=== PATIENT | female | born 1995 | race Caucasian/White ===

== ENCOUNTER 2017-03-05 16:30 | Inpatient (IN) | payer SELFPAY ==
[~2017-03-05] VITALS: Ht 160 cm; Wt 55.6 kg
[2017-03-05 16:32] VITALS: BP 151/76; PULSE 66; RESP 24; TEMP 97.8; O2SAT 98
--- NOTE | 2017-03-05 16:40 | PD ---
Physical Exam Date Seen by Provider: March 05, 2017 Time Seen by Provider: 16:37 Narrative Pt presents with chest and abdominal pain. Started at 0700 this morning. Pain is pressure like. She's SOB. Pt is not on OCP. +N/V. Pt appears acutely distressed. VSS. Data Data Last Documented VS Vital Signs Date Time Temp Pulse Resp B/P Pulse Ox O2 Delivery O2 Flow Rate FiO2 03/05/17 16:32 97.8 66 24 151/76 98 Room Air MDM Supervised Visit with BERKLEY: No Scripts No Active Prescriptions or Reported Meds Amanda Rodriguez March 05, 2017 16:39
[2017-03-05] MEDS ORDERED: LORazepam 2 MG/ML VIAL IV PUSH ONE (17:15)
[2017-03-05] MEDS ORDERED: SODIUM CHLORIDE 0.9% FLUSH 10 ML FLUSH IVF PRN (17:15)
[2017-03-05] MEDS ORDERED: ONDANSETRON HCL 4 MG/2 ML VIAL IV PUSH ONE (17:15)
--- NOTE | 2017-03-05 17:17 | PD ---
HPI Chief Complaint: Chest Pain Time Seen by Provider: 17:05 Travel History International Travel<30 days: No Contact w/Intl Traveler<30days: No Traveled to known affect area: No History of Present Illness HPI This is a 21-year-old female who denies any significant past medical history. She presents for evaluation of chest pain. She reports that this morning she and having epigastric abdominal pain, nausea and vomiting. The abdominal pain is essentially resolved but since then she has had substernal chest pain which she describes as a sharp pain that is constant, worse when breathing in. She endorses shortness of breath associated with this pleuritic pain. She denies any fevers or chills, cough or congestion, dysuria, flank pain, diarrhea or constipation. She reports that she has had similar pain in the past. She reports that typically every 6 months she has this sort of pain. Denies any oral contraceptive use. No history of PE, DVT. No history of pancreatitis. She has no other complaints. PFSH Past Medical History Blood Disorders: No Depression: Yes Cardiovascular Problems: No Diminished Hearing: No Genitourinary: No Musculoskeletal: No Neurologic: No Reproductive: No Respiratory: No Sickle Cell Disease: No ?: Not Past Surgical History Appendectomy: Yes Tonsillectomy: Yes Other Surgery: No Social History Alcohol Use: Yes (RARE) Tobacco Use: No Substance Use: Yes (marijuana) Allergies-Medications (Allergen,Severity, Reaction): Coded Allergies: No Known Allergies (Verified , 03/05/17) Reported Meds & Prescriptions Reported Meds & Active Scripts Active No Active Prescriptions or Reported Medications Review of Systems Except as stated in HPI: all other systems reviewed are Neg Physical Exam Narrative GENERAL: This is a well-developed well-nourished female who is anxious SKIN: Warm and dry. HEAD: Atraumatic. Normocephalic. EYES: Pupils equal and round. No scleral icterus. No injection or drainage. ENT: No nasal bleeding or discharge. Mucous membranes pink and moist. NECK: Trachea midline. No JVD. CARDIOVASCULAR: Regular rate and rhythm. No murmur appreciated. RESPIRATORY: No accessory muscle use. Clear to auscultation. Breath sounds equal bilaterally. No crackles no wheezing or rhonchi GASTROINTESTINAL: Abdomen soft, mild epigastric tenderness without guarding. MUSCULOSKELETAL: No obvious deformities. No edema. NEUROLOGICAL: Awake and alert. No obvious cranial nerve deficits. Motor grossly within normal limits. Normal speech. PSYCHIATRIC: Appropriate mood and affect; insight and judgment normal. Data Data Last Documented VS Vital Signs Date Time Temp Pulse Resp B/P Pulse Ox O2 Delivery O2 Flow Rate FiO2 03/05/17 19:06 90 18 100/52 95 Room Air 03/05/17 16:32 97.8 Orders Electrocardiogram (03/05/17 16:39) Ckmb (Isoenzyme) Profile (03/05/17 17:13) Complete Blood Count With Diff (03/05/17 17:13) Comprehensive Metabolic Panel (03/05/17 17:13) D-Dimer (03/05/17 17:13) Magnesium (Mg) (03/05/17 17:13) Prothrombin Time / Inr (Pt) (03/05/17 17:13) Act Partial Throm Time (Ptt) (03/05/17 17:13) Troponin I (03/05/17 17:13) Lipase (03/05/17 17:13) Chest, Single Ap (03/05/17 17:13) Ecg Monitoring (03/05/17 17:13) Bilateral Bp Monitoring (03/05/17 17:13) Iv Access Insert/Monitor (03/05/17 17:13) Oximetry (03/05/17 17:13) Oxygen Administration (03/05/17 17:13) Sodium Chloride 0.9% Flush (Ns Flush) (03/05/17 17:15) Lactic Acid (03/05/17 17:13) Ed Urine Pregnancytest Poc (03/05/17 17:13) Lorazepam Inj (Ativan Inj) (03/05/17 17:15) Ondansetron Inj (Zofran Inj) (03/05/17 17:15) Urinalysis - C+S If Indicated (03/05/17 17:35) Sodium Chlor 0.9% 1000 Ml Inj (Ns 1000 M (03/05/17 17:45) Sodium Chlor 0.9% 1000 Ml Inj (Ns 1000 M (03/05/17 17:45) Drug Screen, Random Urine (03/05/17 17:44) Vancomycin Inj (Vancomycin Inj) (03/05/17 18:15) Blood Culture (03/05/17 18:13) Piperacil-Tazo 3.375 Gm Premix (Zosyn 3. (03/05/17 18:15) CKMB (03/05/17 17:25) CKMB% (03/05/17 17:25) Morphine Inj (Morphine Inj) (03/05/17 18:45) Beta Hydroxybutyrate (Acetone) (03/05/17 19:33) Admit To Inpatient (03/05/17 ) Vital Signs (Adult) Q4H (03/05/17 19:33) Activity Oob Ad Rocío (03/05/17 19:33) Personal Support Worker / Telemetry .CONTINUOUS (03/05/17 19:33) Diet Regular Basic (03/06/17 Breakfast) Sodium Chlor 0.9% 1000 Ml Inj (Ns 1000 M (03/05/17 19:33) Sodium Chloride 0.9% Flush (Ns Flush) (03/05/17 19:45) Sodium Chloride 0.9% Flush (Ns Flush) (03/05/17 21:00) Ondansetron Inj (Zofran Inj) (03/05/17 19:45) Comprehensive Metabolic Panel (03/06/17 06:00) Complete Blood Count With Diff (03/06/17 06:00) Naloxone Inj (Narcan Inj) (03/05/17 19:45) Inpatient Certification (03/05/17 ) Admit Order (Ed Use Only) (03/05/17 19:34) Labs Laboratory Tests Test 03/05/17 03/05/17 17:25 17:31 White Blood Count 16.2 TH/MM3 Red Blood Count 4.12 MIL/MM3 Hemoglobin 12.7 GM/DL Hematocrit 37.0 % Mean Corpuscular Volume 89.8 FL Mean Corpuscular Hemoglobin 30.9 PG Mean Corpuscular Hemoglobin 34.4 % Concent Red Cell Distribution Width 12.6 % Platelet Count 249 TH/MM3 Mean Platelet Volume 10.1 FL Neutrophils (%) (Auto) 93.0 % Lymphocytes (%) (Auto) 4.2 % Monocytes (%) (Auto) 2.3 % Eosinophils (%) (Auto) 0.0 % Basophils (%) (Auto) 0.5 % Neutrophils # (Auto) 15.1 TH/MM3 Lymphocytes # (Auto) 0.7 TH/MM3 Monocytes # (Auto) 0.4 TH/MM3 Eosinophils # (Auto) 0.0 TH/MM3 Basophils # (Auto) 0.1 TH/MM3 CBC Comment DIFF FINAL Differential Comment Prothrombin Time 11.8 SEC Prothromb Time International 1.1 RATIO Ratio Activated Partial 27.3 SEC Thromboplast Time D-Dimer Quantitative (PE/DVT) 0.22 MG/L FEU Sodium Level 136 MEQ/L Potassium Level 3.4 MEQ/L Chloride Level 104 MEQ/L Carbon Dioxide Level 15.5 MEQ/L Anion Gap 17 MEQ/L Blood Urea Nitrogen 5 MG/DL Creatinine 0.97 MG/DL Estimat Glomerular Filtration 72 ML/MIN Rate Random Glucose 112 MG/DL Lactic Acid Level 7.2 mmol/L Calcium Level 9.5 MG/DL Magnesium Level 1.6 MG/DL Total Bilirubin 0.5 MG/DL Aspartate Amino Transf 16 U/L (AST/SGOT) Alanine Aminotransferase 17 U/L (ALT/SGPT) Alkaline Phosphatase 54 U/L Total Creatine Kinase 149 U/L Creatine Kinase MB 1.8 NG/ML Troponin I LESS THAN 0.02 NG/ML Total Protein 8.3 GM/DL Albumin 4.8 GM/DL Lipase 50 U/L Urine Color YELLOW Urine Turbidity CLEAR Urine pH 7.0 Urine Specific [place] 1.021 Urine Protein TRACE mg/dL Urine Glucose (UA) 150 mg/dL Urine Ketones 150 mg/dL Urine Occult Blood MOD Urine Nitrite NEG Urine Bilirubin NEG Urine Urobilinogen LESS THAN 2.0 MG/DL Urine Leukocyte Esterase NEG Urine RBC 6 /hpf Urine WBC 1 /hpf Urine Squamous Epithelial 4 /hpf Cells Urine Mucus FEW /lpf Microscopic Urinalysis Comment CULT NOT INDICATED MDM Medical Decision Making Medical Screen Exam Complete: Yes Emergency Medical Condition: Yes Medical Record Reviewed: Yes Interpretation(s) EKG sinus bradycardia rate 55 Differential Diagnosis Gastritis, pancreatitis, biliary colic, pneumothorax, gastroenteritis, pulmonary embolism, pericarditis, myocarditis Narrative Course 21-year-old female here for one day history of pleuritic chest pain, shortness of breath, nausea and vomiting. She endorses some epigastric abdominal discomfort this morning which seems to have resolved. On examination she does have mild epigastric tenderness to palpation without guarding. She appears very anxious, hyperventilating. Her vital signs have been reviewed. Plan is for basic lab work, EKG, ECG monitoring, pulse oximetry, chest x-ray, d-dimer. She will be given Ativan, IV fluids and Zofran. The patient's lab work has been reviewed and are she has lactic acidosis with a lactic acid of 7.2, leukocytosis. 2 L of IV fluids and been initiated. Upon reexamination she is feeling somewhat more calm but still in pain so small dose of morphine has been ordered. The patient will be admitted for further evaluation and treatment. Blood cultures have been initiated as well as broad- spectrum antibiotics. Discussed with Dr. Osorio who is agreeable with admission. Procedures EKG Prior to Arrival: Yes Diagnosis Primary Impression: Lactic acidosis Additional Impressions: Leukocytosis Qualified Code: D72.829 - Leukocytosis, unspecified type Nausea and vomiting Qualified Code: R11.2 - Nausea and vomiting, intractability of vomiting not specified, unspecified vomiting type Admitting Information Admitting Physician Requests: Admit Scripts No Active Prescriptions or Reported Meds Jonny Monique March 05, 2017 17:17
[2017-03-05 17:25] VITALS: BP_SYST 122; BP_SYST 124; BP_DIAS 66; BP_DIAS 77; PULSE 63; PULSE 91; RESP 18; O2SAT 100
--- NOTE | 2017-03-05 17:36 | RADRPT ---
EXAM DATE/TIME: 03/05/2017 17:17 [facility] COMPARISON: CHEST SINGLE AP, October 15, 2016, 2:11. INDICATIONS : Chest pain MEDICAL HISTORY : None. SURGICAL HISTORY : None. ENCOUNTER: Initial ACUITY: 2 days PAIN SCORE: 9/10 LOCATION: Bilateral chest FINDINGS: A single view of the chest demonstrates the lungs to be symmetrically aerated without evidence of mas s, infiltrate or effusion. The cardiomediastinal contours are unremarkable. Osseous structures are intact. CONCLUSION: No acute cardiopulmonary process to explain current clinical symptoms. Av Cooney MD on March 05, 2017 at 17:34 Board Certified Radiologist. This report was verified electronically.
[2017-03-05] MEDS ORDERED: SODIUM CHLOR 0.9% 1000 ML INJ 1,000 ML IV ONE ×2 (17:45)
[2017-03-05 17:50] LABS: AUTOMATED NEUTROPHIL # 15.1 TH/MM3 (1.8-7.7); BASOPHIL # 0.1 TH/MM3 (0-0.2); BASOPHIL % 0.5 % (0.0-2.0); HEMO FLAGS DIFF FINAL; LYMPH % 4.2 % (9.0-44.0); LYMPHOCYTE # 0.7 TH/MM3 (1.0-4.8); MEAN CELL VOLUME 89.8 FL (80.0-100.0); MEAN CORPUSCULAR HEMOGLOBIN 30.9 PG (27.0-34.0); MEAN CORPUSCULAR HGB CONC 34.4 % (32.0-36.0); MONO % 2.3 % (0.0-8.0); PLATELET COUNT 249 TH/MM3 (150-450); RED BLOOD COUNT 4.12 MIL/MM3 (4.00-5.30); RED CELL DISTRIBUTION WIDTH 12.6 % (11.6-17.2); WHITE BLOOD COUNT 16.2 TH/MM3 (4.0-11.0)
[2017-03-05 17:50] LABS: BLOOD, URINE MOD (NEG); COMMENT (UR) CULT NOT INDICATED; CULTURE IF INDICATED CULT NOT INDICATED; GLUCOSE,URINE 150 mg/dL (NEG); KETONE, URINE 150 mg/dL (NEG); MUCUS URINE FEW /lpf (OCC); NITRITE,URINE NEG (NEG); SQUAMOUS EPITHELIAL CELL URINE 4 /hpf (0-5); URINE COLOR YELLOW (YELLW/STRAW)
--- NOTE | 2017-03-05 17:52 | EKG ---
Date Performed: 03/05/2017 Time Performed: 16:45:00 PTAGE: 21 years EKG: SINUS BRADYCARDIA WITH OCCASIONAL SUPRAVENTRICULAR PREMATURE COMPLEXES BORDERLINE ECG ALLAN RED TO PRIOR ELECTROCARDIOGRAM, Rate has slowed. PREVIOUS TRACING : 10/15/2016 02.22 DOCTOR: Ge Bell Interpretating Date/Time 03/05/2017 17:51:45
[2017-03-05 18:03] LABS: APTT (PATIENT) 27.3 SEC (24.3-30.1); INTERNATIONAL NORMALIZED RATIO 1.1 RATIO; PROTHROMBIN TIME - PATIENT 11.8 SEC (9.8-11.6)
[2017-03-05 18:04] LABS: ALT (GPT) 17 U/L (10-53); ANION GAP 17 MEQ/L (5-15); AST (GOT) 16 U/L (15-37); BICARBONATE 15.5 MEQ/L (21.0-32.0); BLOOD UREA NITROGEN 5 MG/DL (7-18); CHLORIDE 104 MEQ/L (98-107); GLOMERULAR FILTRATION RATE 72 ML/MIN (>89); MAGNESIUM 1.6 MG/DL (1.5-2.5); POTASSIUM 3.4 MEQ/L (3.5-5.1); SODIUM (NA) 136 MEQ/L (136-145)
[2017-03-05] MEDS ORDERED: VANCOMYCIN INJ 1,000 MG in SODIUM CHLOR 0.9% 250 ML INJ 250 ML IV ONE (18:15)
[2017-03-05] MEDS ORDERED: PIPERACIL-TAZO 3.375 GM PREMIX 50 ML IV ONE ×2 (18:15)
[2017-03-05] MEDS ORDERED: VANCOMYCIN INJ 900 MG in SODIUM CHLOR 0.9% 250 ML INJ 250 ML IV ONE (18:15)
[2017-03-05 18:19] LABS: ALKALINE PHOSPHATASE 54 U/L (45-117); CREATINE KINASE 149 U/L (26-192); TOTAL BILIRUBIN ADULT 0.5 MG/DL (0.2-1.0)
[2017-03-05 18:31] LABS: CKMB 1.8 NG/ML (0.5-3.6)
[2017-03-05] MEDS ORDERED: MORPHINE SULFATE 4 MG/ML INJ IV PUSH ONE (18:45)
[2017-03-05 19:06] VITALS: BP 100/52; PULSE 90; RESP 18; O2SAT 95
[2017-03-05] MEDS ORDERED: NALOXONE HCL 0.4 MG/ML AMP IV PRN (19:45)
[2017-03-05] MEDS ORDERED: Vancomycin Consult Pharmacy 1 EA OTHER SCH (19:45)
[2017-03-05] MEDS ORDERED: ONDANSETRON HCL 4 MG/2 ML VIAL IVP PRN (19:45)
[2017-03-05] MEDS ORDERED: SODIUM CHLORIDE 0.9% FLUSH 10 ML FLUSH IV FLUSH PRN (19:45)
[2017-03-05] MEDS: SODIUM CHLORIDE 0.9% FLUSH 10 ML FLUSH IV FLUSH SCH (21:07)
[2017-03-05] MEDS: SODIUM CHLOR 0.9% 1000 ML INJ 1,000 ML IV SCH (21:07)
[2017-03-05 21:23] VITALS: BP 102/58
[2017-03-05 21:34] LABS: BICARBONATE 21.4 MEQ/L (21.0-32.0); POTASSIUM 3.8 MEQ/L (3.5-5.1)
[2017-03-05 21:45] VITALS: BP 109/59; PULSE 77; RESP 17; TEMP 97.1; O2SAT 98
[2017-03-05] MEDS: PIPERACIL-TAZO 4.5 GM PREMIX 100 ML IV SCH (23:29)
--- NOTE | 2017-03-05 23:54 | HHI.HP ---
HPI Service [facility] Primary Care Physician No Primary Care Physician Admission Diagnosis lactic acidosis, nausea and vomiting, leukocytosis Diagnoses: Travel History International Travel<30 Days: No Contact w/Intl Traveler <30 Da: No Traveled to Known Affected Are: No History of Present Illness History patient, ER physician communication, and patient's girlfriend at the bedside. woke up at 7am because chest and abdominal pain - pain actually woke her up worse when you move when standing up, started vomiting then started having nausea vomitng - green color vomitied more than 12 times diarrhea 2- 3times - last diarrhea was red no hemorrids tyring to sleep off, hard to breathe sharp pains in chest whenever she breathes had had similar symptoms like this before - for past 1.5 yrs, had in jul and sep no relation to periods has had appendecotmy and tonsillectomy not on any meds no smoking, no drinking , no drugs no supplements Review of Systems Except as stated in HPI: all other systems reviewed are Neg Past Family Social History Past Medical History none except mild depression and psychosis once at 15yo Past Surgical History appendectomy and tonsillectomy Allergies: Coded Allergies: No Known Allergies (Verified , 03/05/17) Family History grandma heart problem, pacemaker dm- grandma paternal Social History Denies smoking/alcohol abuse/drug abuse Physical Exam Vital Signs Vital Signs Date Time Temp Pulse Resp B/P Pulse Ox O2 Delivery O2 Flow Rate FiO2 03/05/17 21:45 97.1 77 17 109/59 98 03/05/17 21:23 80 18 102/58 97 03/05/17 19:06 90 18 100/52 95 Room Air 03/05/17 18:52 16 03/05/17 17:25 18 100 Room Air 03/05/17 17:25 63 18 122/77 100 Room Air 124/66 03/05/17 17:25 63 18 100 Room Air 03/05/17 17:25 100 Room Air 03/05/17 16:32 97.8 66 24 151/76 98 Room Air Physical Exam GENERAL: This is a well-nourished, well-developed patient, in no apparent distress. SKIN: No rashes, ecchymoses or lesions. Cool and dry. HEAD: Atraumatic. Normocephalic. No temporal or scalp tenderness. EYES:No scleral icterus. No injection or drainage. NECK: Trachea midline. No JVD CARDIOVASCULAR: Regular rate and rhythm without murmurs, gallops, or rubs. RESPIRATORY: Clear to auscultation. Breath sounds equal bilaterally. No wheezes , rales, or rhonchi. GASTROINTESTINAL: Abdomen soft, non-tender, nondistended.. No guarding. MUSCULOSKELETAL: Extremities without clubbing, cyanosis, or edema. . No calf tenderness. NEUROLOGICAL: Awake and alert. Motor and sensory grossly within normal limits. Normal speech. Laboratory Laboratory Tests Test 03/05/17 03/05/17 03/05/17 17:25 17:31 21:00 White Blood Count 16.2 Red Blood Count 4.12 Hemoglobin 12.7 Hematocrit 37.0 Mean Corpuscular Volume 89.8 Mean Corpuscular Hemoglobin 30.9 Mean Corpuscular Hemoglobin 34.4 Concent Red Cell Distribution Width 12.6 Platelet Count 249 Mean Platelet Volume 10.1 Neutrophils (%) (Auto) 93.0 Lymphocytes (%) (Auto) 4.2 Monocytes (%) (Auto) 2.3 Eosinophils (%) (Auto) 0.0 Basophils (%) (Auto) 0.5 Neutrophils # (Auto) 15.1 Lymphocytes # (Auto) 0.7 Monocytes # (Auto) 0.4 Eosinophils # (Auto) 0.0 Basophils # (Auto) 0.1 CBC Comment DIFF FINAL Differential Comment Prothrombin Time 11.8 Prothromb Time International 1.1 Ratio Activated Partial 27.3 Thromboplast Time D-Dimer Quantitative (PE/DVT) 0.22 Sodium Level 136 141 Potassium Level 3.4 3.8 Chloride Level 104 110 Carbon Dioxide Level 15.5 21.4 Anion Gap 17 10 Blood Urea Nitrogen 5 4 Creatinine 0.97 0.64 Estimat Glomerular Filtration 72 117 Rate Random Glucose 112 110 Lactic Acid Level 7.2 1.2 Calcium Level 9.5 8.0 Magnesium Level 1.6 Total Bilirubin 0.5 Aspartate Amino Transf 16 (AST/SGOT) Alanine Aminotransferase 17 (ALT/SGPT) Alkaline Phosphatase 54 Total Creatine Kinase 149 Creatine Kinase MB 1.8 Troponin I LESS THAN 0.02 Total Protein 8.3 Albumin 4.8 Lipase 50 Urine Color YELLOW Urine Turbidity CLEAR Urine pH 7.0 Urine Specific [place] 1.021 Urine Protein TRACE Urine Glucose (UA) 150 Urine Ketones 150 Urine Occult Blood MOD Urine Nitrite NEG Urine Bilirubin NEG Urine Urobilinogen LESS THAN 2.0 Urine Leukocyte Esterase NEG Urine RBC 6 Urine WBC 1 Urine Squamous Epithelial 4 Cells Urine Mucus FEW Microscopic Urinalysis Comment CULT NOT INDICATED B-Hydroxybutyrate 0.27 Date/Time Procedure Status Source Growth 03/05/17 18:20 Aerobic Blood Culture Received Blood Peripheral Pending 03/05/17 18:20 Anaerobic Blood Culture Received Blood Peripheral Pending Result Diagram: 03/05/17 1725 03/05/17 2100 Imaging Last 48 hours Impressions Chest X-Ray 03/05/17 1713 Signed Impressions: Service Date/Time: , March 05, 2017 17:17 - CONCLUSION: No acute cardiopulmonary process to explain current clinical symptoms. Av Cooney MD Assessment and Plan Assessment and Plan Impression: Possible sudden anxiety attack from severe acid reflux/gastritissince patient associates these episodes occurred every time she eats something red. She states this this time it was after she had a red soda. Previous times it was mostly when she had tomato sauce and tire inspector or some spicy sauce. Lactic acid acidosis metabolic acidosissecondary to lactic acidosis Leukocytosis with left shiftsecondary to acute stress from these episodes versus underlying infection Plan: IV hydration 2 L normal saline in the ER. Repeat lactic acid level is corrected. Leukocytosis also has improved somewhat although patient did receive IV antibiotics in ER. At this point, since patient looks clinically well and there is no evidence of sepsis, I would discontinue antibiotics and observe her off antibiotics. Consults GI for further workup. Patient did have abdominal CT in September when she had similar episodes. No significant pathology there. DVT prophylaxiswith SCD. GI prophylaxis on pantoprazole. Physician Certification 2 Midnight Certification Type: Admission for Inpatient Services Order for Inpatient Services The services are ordered in accordance with Medicare regulations or non- Medicare payer requirements, as applicable. In the case of services not specified as inpatient-only, they are appropriately provided as inpatient services in accordance with the 2-midnight benchmark. Estimated LOS (days): 2 days is the estimated time the patient will need to remain in the hospital, assuming treatment plan goals are met and no additional complications. Post-Hospital Plan: Home Belén Osorio MD March 05, 2017 23:54
[2017-03-06] VITALS (8 sets, daily range): BP systolic 106–128; BP diastolic 59–83; PULSE 48–75; RESP 16–18; TEMP 95.9–99; O2SAT 98–100
[2017-03-06 01:07] LABS: AMPHETAMINE, URINE NEG (NEG); BARBITURATES, URINE NEG (NEG); COCAINE, URINE NEG (NEG)
[2017-03-06] MEDS: PIPERACIL-TAZO 4.5 GM PREMIX 100 ML IV SCH (05:39)
[2017-03-06] MEDS: SODIUM CHLOR 0.9% 1000 ML INJ 1,000 ML IV SCH ×2 (05:40→15:33)
[2017-03-06] MEDS ORDERED: VANCOMYCIN 1,000 MG/NS 250 ML IV SCH ×2 (06:00)
[2017-03-06 06:26] LABS: AUTOMATED NEUTROPHIL # 10.6 TH/MM3 (1.8-7.7); BASOPHIL # 0.1 TH/MM3 (0-0.2); BASOPHIL % 0.4 % (0.0-2.0); EOSINOPHIL # 0.1 TH/MM3 (0-0.4); EOSINOPHIL % 0.5 % (0.0-4.0); HEMATOCRIT 34.7 % (35.0-46.0); HEMO FLAGS DIFF FINAL; LYMPH % 21.1 % (9.0-44.0); LYMPHOCYTE # 3.2 TH/MM3 (1.0-4.8); MEAN CELL VOLUME 91.1 FL (80.0-100.0); MEAN CORPUSCULAR HEMOGLOBIN 29.7 PG (27.0-34.0); MEAN CORPUSCULAR HGB CONC 32.6 % (32.0-36.0); MONO % 7.6 % (0.0-8.0); NEUT % 70.4 % (16.0-70.0); PLATELET COUNT 218 TH/MM3 (150-450); RED BLOOD COUNT 3.81 MIL/MM3 (4.00-5.30); WHITE BLOOD COUNT 15.1 TH/MM3 (4.0-11.0)
[2017-03-06 07:02] LABS: ALKALINE PHOSPHATASE 41 U/L (45-117); ALT (GPT) 15 U/L (10-53); ANION GAP 9 MEQ/L (5-15); AST (GOT) 15 U/L (15-37); BICARBONATE 21.8 MEQ/L (21.0-32.0); BLOOD UREA NITROGEN 3 MG/DL (7-18); CHLORIDE 113 MEQ/L (98-107); GLOMERULAR FILTRATION RATE 159 ML/MIN (>89); POTASSIUM 3.5 MEQ/L (3.5-5.1); SODIUM (NA) 144 MEQ/L (136-145); TOTAL BILIRUBIN ADULT 0.3 MG/DL (0.2-1.0)
--- NOTE | 2017-03-06 08:08 | PD.CONS ---
HPI History of Present Illness This is a 21 year old female who presented to the ER for evaluation of chest pain with associated nausea, vomiting, abdominal pain, and diarrhea. She woke up from her sleep with severe sharp chest pain and intermittent sternal area. She reports this was worse with inspiration and she also had an associated sharp burning pain in her mid abdominal area. Shortly after she began having nausea vomiting consisting of green bilious material, but no hematemesis. After she started vomiting her abdominal pain went away but she continued to have chest pain. She also reports that she is having some heartburn, although she doesn't typically get this. She passed a couple of loose stools. She notes that there was a small amount of bright red blood noted on the tissue 1 time, but that she passed a few more stools and did not have any further bleeding. She denies any fever, chills, weight loss, decreased appetite. She reports that she's had similar symptoms in the past a few times. She cannot identify any precipitating factors. She denies any recent antibiotic use, travel, sick contacts, suspicious food. She does have headaches and will occasionally take ibuprofen but states she only does this once or twice a month and nothing on a regular basis. She denies any history of peptic ulcer disease. She denies any chance of and states she last had her period 2 days ago. (Marla Phan) PFSH Past Medical History Mild depression Headaches Past Surgical History Appendectomy Tonsillectomy (Marla Phan) Coded Allergies: No Known Allergies (Verified , 03/05/17) Medications Allergies Coded Allergies Type Severity Reaction Last Updated Verified No Known Allergies 03/05/17 Yes Active Scripts Medications Dose Route/Sig Days Date Category No Active Prescriptions or Reported Medications Rx Family History Paternal grandmother with cardiac issues, ppm Paternal grandfather with dm. Social History Denies the use of tobacco, alcohol, or illicit drug use. Of note her toxicology screen was positive for marijuana (Marla Phan) Review of Systems Constitutional: DENIES: Fever, Weight loss, Chills Respiratory: COMPLAINS OF: Shortness of breath, DENIES: Cough Cardiovascular: COMPLAINS OF: Chest pain Gastrointestinal: COMPLAINS OF: Abdominal pain, Bloody stools (x 1 small amount of brbpr), Diarrhea, Nausea, Heartburn, DENIES: Black stools, Hematemesis Musculoskeletal: DENIES: Back pain Integumentary: DENIES: Rash Hematologic/lymphatic: DENIES: Bruising Neurologic: COMPLAINS OF: Headache Psychiatric: DENIES: Confusion (Marla Phan) GI Exam Vitals I&O Vital Signs Date Time Temp Pulse Resp B/P Pulse Ox O2 Delivery O2 Flow Rate FiO2 03/06/17 04:25 97.4 75 16 109/59 99 03/06/17 03:28 71 03/06/17 00:27 67 03/06/17 00:13 96.8 73 16 106/63 99 03/05/17 21:45 97.1 77 17 109/59 98 03/05/17 21:23 80 18 102/58 97 03/05/17 19:06 90 18 100/52 95 Room Air 03/05/17 18:52 16 03/05/17 17:25 18 100 Room Air 03/05/17 17:25 63 18 122/77 100 Room Air 124/66 03/05/17 17:25 63 18 100 Room Air 03/05/17 17:25 100 Room Air 03/05/17 16:32 97.8 66 24 151/76 98 Room Air I/O 03/05/17 03/05/17 03/05/17 03/06/17 03/06/17 03/06/17 07:00 15:00 23:00 07:00 15:00 23:00 Intake Total 240 ml 949 ml Balance 240 ml 949 ml Intake Oral 240 ml 120 ml IV Total 829 ml # Voids 0 1 # Bowel Movements 0 0 Imaging Last Impressions Chest X-Ray 03/05/17 1713 Signed Impressions: Service Date/Time: February 17:17 - CONCLUSION: No acute cardiopulmonary process to explain current clinical symptoms. Av Cooney MD Laboratory Test 03/05/17 03/05/17 03/05/17 03/06/17 17:25 17:31 21:00 05:51 White Blood Count 16.2 TH/MM3 15.1 TH/MM3 Red Blood Count 4.12 MIL/MM3 3.81 MIL/MM3 Hemoglobin 12.7 GM/DL 11.3 GM/DL Hematocrit 37.0 % 34.7 % Mean Corpuscular Volume 89.8 FL 91.1 FL Mean Corpuscular Hemoglobin 30.9 PG 29.7 PG Mean Corpuscular Hemoglobin 34.4 % 32.6 % Concent Red Cell Distribution Width 12.6 % 13.0 % Platelet Count 249 TH/MM3 218 TH/MM3 Mean Platelet Volume 10.1 FL 9.9 FL Neutrophils (%) (Auto) 93.0 % 70.4 % Lymphocytes (%) (Auto) 4.2 % 21.1 % Monocytes (%) (Auto) 2.3 % 7.6 % Eosinophils (%) (Auto) 0.0 % 0.5 % Basophils (%) (Auto) 0.5 % 0.4 % Neutrophils # (Auto) 15.1 TH/MM3 10.6 TH/MM3 Lymphocytes # (Auto) 0.7 TH/MM3 3.2 TH/MM3 Monocytes # (Auto) 0.4 TH/MM3 1.1 TH/MM3 Eosinophils # (Auto) 0.0 TH/MM3 0.1 TH/MM3 Basophils # (Auto) 0.1 TH/MM3 0.1 TH/MM3 CBC Comment DIFF FINAL DIFF FINAL Differential Comment Prothrombin Time 11.8 SEC Prothromb Time International 1.1 RATIO Ratio Activated Partial 27.3 SEC Thromboplast Time D-Dimer Quantitative (PE/DVT) 0.22 MG/L FEU Sodium Level 136 MEQ/L 141 MEQ/L 144 MEQ/L Potassium Level 3.4 MEQ/L 3.8 MEQ/L 3.5 MEQ/L Chloride Level 104 MEQ/L 110 MEQ/L 113 MEQ/L Carbon Dioxide Level 15.5 MEQ/L 21.4 MEQ/L 21.8 MEQ/L Anion Gap 17 MEQ/L 10 MEQ/L 9 MEQ/L Blood Urea Nitrogen 5 MG/DL 4 MG/DL 3 MG/DL Creatinine 0.97 MG/DL 0.64 MG/DL 0.49 MG/DL Estimat Glomerular Filtration 72 ML/MIN 117 ML/MIN 159 ML/MIN Rate Random Glucose 112 MG/DL 110 MG/DL 84 MG/DL Lactic Acid Level 7.2 mmol/L 1.2 mmol/L Calcium Level 9.5 MG/DL 8.0 MG/DL 8.4 MG/DL Magnesium Level 1.6 MG/DL Total Bilirubin 0.5 MG/DL 0.3 MG/DL Aspartate Amino Transf 16 U/L 15 U/L (AST/SGOT) Alanine Aminotransferase 17 U/L 15 U/L (ALT/SGPT) Alkaline Phosphatase 54 U/L 41 U/L Total Creatine Kinase 149 U/L Creatine Kinase MB 1.8 NG/ML Troponin I LESS THAN 0.02 NG/ML Total Protein 8.3 GM/DL 6.2 GM/DL Albumin 4.8 GM/DL 3.6 GM/DL Lipase 50 U/L Urine Color YELLOW Urine Turbidity CLEAR Urine pH 7.0 Urine Specific [place] 1.021 Urine Protein TRACE mg/dL Urine Glucose (UA) 150 mg/dL Urine Ketones 150 mg/dL Urine Occult Blood MOD Urine Nitrite NEG Urine Bilirubin NEG Urine Urobilinogen LESS THAN 2.0 MG/DL Urine Leukocyte Esterase NEG Urine RBC 6 /hpf Urine WBC 1 /hpf Urine Squamous Epithelial 4 /hpf Cells Urine Mucus FEW /lpf Microscopic Urinalysis Comment CULT NOT INDICATED Urine Opiates Screen NEG Urine Barbiturates Screen NEG Urine Amphetamines Screen NEG Urine Benzodiazepines Screen NEG Urine Cocaine Screen NEG Urine Cannabinoids Screen POS B-Hydroxybutyrate 0.27 MMOL/L Date/Time Procedure Status Source Growth 03/05/17 18:20 Aerobic Blood Culture Received Blood Peripheral Pending 03/05/17 18:20 Anaerobic Blood Culture Received Blood Peripheral Pending Physical Examination HEENT: Normocephalic; atraumatic; no jaundice. CHEST: CTA CARDIAC: RRR ABDOMEN: Soft, nondistended,mild mid abdominal tenderness; no hepatosplenomegaly; bowel sounds are present in all four quadrants. EXTREMITIES: No clubbing, cyanosis, or edema. SKIN: Normal; no rash; no jaundice. EARTH SCIENCE TECHNICIAN: No focal deficits; alert and oriented times three. (Marla PhanP) Assessment and Plan Plan ASSESSMENT: - N/V/D with abdominal pain, likely gastroenteritis. She was awakened with chest pain, mid sternal burning/sharp pain made worse with inspiration and mid abdominal pain, then started having n/v with bilious material- abdominal pain resolved. Passed several loose stools- one with a small amount of brbpr, but several after this without any further bleeding. No fever, chills, weight loss, decreased appetite. She denies any recent antibiotic use, travel, sick contacts, suspicious food. She does have headaches and will occasionally take ibuprofen but states she only does this once or twice a month and nothing on a regular basis. No hx PUD. She denies any chance of and states she last had her period 2 days ago. - BRBPR x 1. HH stable. D/W patient flexible sigmoidoscopy- refused. - GERD. C/O heartburn, does not typically have this. PPI - Leukocytosis with elevated lactic acid at 7.2. WBC 15.1. Improved. Lactic acid 1.2. - Atypical CP. Mid sternal sharp/burning pain associated with n/v/abdominal pain. PLAN: - Plan for egd today - Obtain consents - NPO - PPI - Stat beta hcg - Stool for Cdiff, O&P, Giardia, C/S, WBC - Monitor labs - D/W patient evaluation with flexible sigmoidoscopy at time of egd- pt refuses - Further recommendations to follow based on results of above - Pt seen and examined by Dr. Mtz and myself and this note is written on her behalf (Marla Phan) Marla Phan March 06, 2017 08:08 Mariana Mtz MD March 14, 2017 05:57
[2017-03-06 08:42] LABS: BETA HCG QUANT LESS THAN 1 MIU/ML (0-5)
[2017-03-06] MEDS: SODIUM CHLORIDE 0.9% FLUSH 10 ML FLUSH IV FLUSH SCH (09:00)
[2017-03-06] MEDS: PANTOPRAZOLE SOD 40 MG DELAYED RELEASE TAB PO SCH (09:20)
[2017-03-06] MEDS ORDERED: PROPOFOL 200 MG/20 ML AMP IV ONE (12:49)
--- NOTE | 2017-03-06 13:08 | GIPROC ---
[facility] [address] [facility]. [facility], [address] EGD PROCEDURE REPORT EXAM DATE: 03/06/2017 PATIENT NAME: Jameel Seymour MR #: [id number] BIRTHDATE: 1995 ATTENDING: Mariana Mtz MD ORDER #: [id number] USED EQUIPMENT SALES REPRESENTATIVE: Singh Dunn and Johnathon Landaverde STATUS: inpatient INDICATIONS: The patient is a 21 yr old female here for an EGD due to abdominal pain, nausea PROCEDURE PERFORMED: EGD w/ biopsy MEDICATIONS: None and Per Anesthesia. TOPICAL ANESTHETIC: none CONSENT: The patient understands the risks and benefits of the procedure and understands that these risks include, but are not limited to: sedation, allergic reaction, infection, perforation and/or bleeding. Alternative means of evaluation and treatment include, among others: physical exam, x-rays, and/or surgical intervention. The patient elects to proceed with this endoscopic procedure. medical equipment was checked for proper function. Hand hygiene and appropriate measures for infection prevention was taken. After the risks, benefits and alternatives of the procedure were thoroughly explained, Informed consent was verified, confirmed and timeout was successfully executed by the treatment team. The patient was anesthetized with topical anesthesia and the Pentax [id number] endoscope was introduced through the mouth and advanced to the second portion of the duodenum. Retroflexed views revealed a hiatal hernia The gastroscope was then slowly withdrawn and removed. Gastritis antrum-biopsy esophagitis distal esophagus. ADVERSE EVENTS: There were no complications. IMPRESSIONS: 1. Gastritis antrum-biopsy esophagitis distal esophagus 2. Retroflexed views revealed a hiatal hernia RECOMMENDATIONS: 1. Await biopsy results. Biopsy results will not be ready for 7-10 days. If you don't hear from us in two weeks, call our office for biopsy results. 2. Anti-reflux regimen 3. Continue PPI 4. Abdominal us PATIENT CONDITION: stable DISPOSITION: Inpatient REPEAT EXAM: EGD pending biopsy results Mariana Mtz MD eSigned: Mariana Mtz MD 03/06/2017 1:08 PM cc:
[2017-03-06] MEDS ORDERED: PIPERACIL-TAZO 3.375 GM PREMIX 50 ML IV SCH (14:00)
--- NOTE | 2017-03-06 14:53 | HHI.PR ---
Subjective Remarks Patient seen this morning. She reports chest pain has almost resolved. Reports nausea and vomiting improved today. Objective Vital Signs Date Time Temp Pulse Resp B/P Pulse Ox O2 Delivery O2 Flow Rate FiO2 03/06/17 13:10 61 16 121/79 96 03/06/17 13:05 52 16 138/76 100 03/06/17 12:59 98.4 53 16 163/98 98 03/06/17 12:12 96.4 62 18 120/59 99 03/06/17 08:02 95.9 60 16 118/65 100 03/06/17 04:25 97.4 75 16 109/59 99 03/06/17 03:28 71 03/06/17 00:27 67 03/06/17 00:13 96.8 73 16 106/63 99 03/05/17 21:45 97.1 77 17 109/59 98 03/05/17 21:23 80 18 102/58 97 03/05/17 19:06 90 18 100/52 95 Room Air 03/05/17 18:52 16 03/05/17 17:25 18 100 Room Air 03/05/17 17:25 63 18 122/77 100 Room Air 124/66 03/05/17 17:25 63 18 100 Room Air 03/05/17 17:25 100 Room Air 03/05/17 16:32 97.8 66 24 151/76 98 Room Air I/O 03/05/17 03/05/17 03/05/17 03/06/17 03/06/17 03/06/17 07:00 15:00 23:00 07:00 15:00 23:00 Intake Total 240 ml 949 ml 50 ml Balance 240 ml 949 ml 50 ml Intake Oral 240 ml 120 ml IV Total 829 ml 50 ml # Voids 0 1 # Bowel Movements 0 0 Result Diagram: 03/06/17 0551 03/06/17 0551 Objective Remarks GENERAL: Patient sitting up in bed. No acute distress. Alert and oriented 3. SKIN: Warm and dry. HEAD: Normocephalic. EYES: No scleral icterus. No injection or drainage. NECK: Supple, trachea midline. No JVD. CARDIOVASCULAR: Regular rate and rhythm without murmurs, gallops, or rubs. RESPIRATORY: Breath sounds equal bilaterally. No accessory muscle use. Sternal tenderness to palpation. No ecchymosis GASTROINTESTINAL: Abdomen soft, non-tender, nondistended. MUSCULOSKELETAL: No cyanosis, or edema. BACK: Nontender without obvious deformity. No CVA tenderness. A/P Assessment and Plan //Acute onset chest pain overnight 03/05 //Possible sudden anxiety attack from severe acid reflux/gastritissince patient associates these episodes occurred every time she eats something red. She states this this time it was after she had a red soda. Previous times it was mostly when she had tomato sauce and generator rebuilder or some spicy sauce. -D-dimer negative. Chest x-ray negative -EGD performed and positive for gastritis, hiatal hernia. No ulcer. -03/06. Anxiety, chest pain improved. Appreciate gastroenterology assistance. Ultrasound abdomen pending. Cultures negative to date. Continue to observe off of antibiotics. //Leukocytosis. Improving. No sign of infection otherwise. Continue to monitor off of antibiotics. //Lactic acidosis. On admission. -Lactic acid elevated in the sevens on admission.. Corrected with fluids. //DVT prophylaxiswith SCD. //GI prophylaxis on pantoprazole. Discharge Planning Pending GI clearance. Alfonzo Carroll MD March 06, 2017 14:53
--- NOTE | 2017-03-06 15:15 | RADRPT ---
EXAM DATE/TIME: 03/06/2017 13:42 [facility] COMPARISON: No previous studies available for comparison. INDICATIONS : Abdominal pain. MEDICAL HISTORY : Depression. Headache. SURGICAL HISTORY : Tonsillectomy. Appendectomy. ENCOUNTER: Initial ACUITY: 1 day PAIN SCORE: 9/10 LOCATION: Bilateral abdominal. MEASUREMENTS: LIVER: 17.0 cm length COMMON DUCT: 2 mm RIGHT KIDNEY: 10.8 x 5.4 x 5.5 cm LEFT KIDNEY: 11.9 x 5.4 x 5.5 cm SPLEEN: 8.9 cm length AORTA: 1.8cm maximal FINDINGS: LIVER: Normal echotexture without focal lesion or ductal dilatation. COMMON DUCT: No intraluminal mass or stone visualized. GALLBLADDER: Contains no stones, demonstrates no wall thickening or pericholecystic fluid. PANCREAS: The visualized portions are within normal limits. RIGHT KIDNEY: No hydronephrosis, stone or mass. LEFT KIDNEY: No hydronephrosis, stone or mass. SPLEEN: No focal lesion. AORTA: Non aneurysmal. IVC: Within normal limits. CONCLUSION: Normal examination. Jayce Aponte MD on March 06, 2017 at 15:12 Board Certified Radiologist. This report was verified electronically.
[2017-03-07 00:35] VITALS: BP 115/69; PULSE 58; RESP 16; TEMP 97.1; O2SAT 100
[2017-03-07 04:35] VITALS: BP 135/74; PULSE 59; RESP 16; TEMP 97.2; O2SAT 100
[2017-03-07] MEDS ORDERED: PHARMACY ORDERED LAB ONE (05:45)
[2017-03-07 07:07] LABS: AUTOMATED NEUTROPHIL # 5.8 TH/MM3 (1.8-7.7); BASOPHIL # 0.1 TH/MM3 (0-0.2); BASOPHIL % 0.8 % (0.0-2.0); EOSINOPHIL # 0.3 TH/MM3 (0-0.4); EOSINOPHIL % 2.9 % (0.0-4.0); HEMATOCRIT 33.4 % (35.0-46.0); HEMO FLAGS DIFF FINAL; LYMPH % 32.7 % (9.0-44.0); LYMPHOCYTE # 3.3 TH/MM3 (1.0-4.8); MEAN CELL VOLUME 91.1 FL (80.0-100.0); MEAN CORPUSCULAR HEMOGLOBIN 30.7 PG (27.0-34.0); MEAN CORPUSCULAR HGB CONC 33.7 % (32.0-36.0); MONO % 6.4 % (0.0-8.0); NEUT % 57.2 % (16.0-70.0); PLATELET COUNT 201 TH/MM3 (150-450); RED BLOOD COUNT 3.66 MIL/MM3 (4.00-5.30); WHITE BLOOD COUNT 10.2 TH/MM3 (4.0-11.0)
[2017-03-07 07:38] LABS: BICARBONATE 22.7 MEQ/L (21.0-32.0); POTASSIUM 3.6 MEQ/L (3.5-5.1)
[2017-03-07 08:00] VITALS: BP 106/70; PULSE 63; RESP 19; TEMP 96.9; O2SAT 100
[2017-03-07] MEDS: SODIUM CHLOR 0.9% 1000 ML INJ 1,000 ML IV SCH (08:35)
[2017-03-07] MEDS: PANTOPRAZOLE SOD 40 MG DELAYED RELEASE TAB PO SCH (08:35)
[2017-03-07] MEDS: SODIUM CHLORIDE 0.9% FLUSH 10 ML FLUSH IV FLUSH SCH (08:39)
[2017-03-07 12:00] VITALS: BP 120/75; PULSE 51; RESP 16; TEMP 98; O2SAT 100
[2017-03-07] MEDS ORDERED: OMEP40CA2 PO (12:39)
[2017-03-07] MEDS ORDERED: IBUPROFEN 600 MG TAB PO ONE (12:45)
--- NOTE | 2017-03-07 12:48 | HHI.PR ---
Subjective Remarks pt says she is feeling alright. she says she does have a frontal headach, which she has had before. no focal symptoms or visual disturbance. room smells of vaping device. pt denies. friends in room. Objective Vital Signs Date Time Temp Pulse Resp B/P Pulse Ox O2 Delivery O2 Flow Rate FiO2 03/07/17 08:00 96.9 63 19 106/70 100 03/07/17 04:35 97.2 59 16 135/74 100 03/07/17 00:35 97.1 58 16 115/69 100 03/06/17 20:00 99.0 48 17 123/83 99 03/06/17 16:00 96.3 66 18 128/60 98 03/06/17 13:10 61 16 121/79 96 03/06/17 13:05 52 16 138/76 100 03/06/17 12:59 98.4 53 16 163/98 98 I/O 03/06/17 03/06/17 03/06/17 03/07/17 03/07/17 03/07/17 07:00 15:00 23:00 07:00 15:00 23:00 Intake Total 949 ml 410 ml 360 ml 240 ml Balance 949 ml 410 ml 360 ml 240 ml Intake Oral 120 ml 360 ml 360 ml 240 ml IV Total 829 ml 50 ml # Voids 1 4 2 1 # Bowel Movements 0 0 0 Result Diagram: 03/07/1761703/07/17617 Objective Remarks GENERAL: Patient sitting up in bed. No acute distress. Alert and oriented 3. SKIN: Warm and dry. HEAD: Normocephalic. EYES: No scleral icterus. No injection or drainage. no sinus tenderness NECK: Supple, trachea midline. No JVD. CARDIOVASCULAR: Regular rate and rhythm without murmurs, gallops, or rubs. RESPIRATORY: Breath sounds equal bilaterally. No accessory muscle use. GASTROINTESTINAL: Abdomen soft, non-tender, nondistended. MUSCULOSKELETAL: No cyanosis, or edema. BACK: Nontender without obvious deformity. No CVA tenderness. A/P Assessment and Plan //Acute onset chest pain overnight 03/05 //Possible sudden anxiety attack from severe acid reflux/gastritissince patient associates these episodes occurred every time she eats something red. She states this this time it was after she had a red soda. Previous times it was mostly when she had tomato sauce and apron cleaner or some spicy sauce. -D-dimer negative. Chest x-ray negative -EGD performed and positive for gastritis, hiatal hernia. No ulcer. -03/06. Anxiety, chest pain improved. Appreciate gastroenterology assistance. Ultrasound abdomen pending. Cultures negative to date. Continue to observe off of antibiotics. 03/07 resolved. EGD with hiatal hernia, biopsy pending, f/u gi. BID PPI. avoid acidic foods/drinks at bedtime (pt had red soda prior to bed) //intermittent MJ use. pt counseled to quit. association with nausea syndrome discussed. //Leukocytosis. resolved. No sign of infection otherwise. Continue to monitor off of antibiotics. //Lactic acidosis. On admission. -Lactic acid elevated in the sevens on admission.. Corrected with fluids. //Headache - stress/sleep related. no alarming symptoms. ibuprofen x1 //DVT prophylaxiswith SCD. //GI prophylaxis on pantoprazole. Discharge Planning DC home with PPI. avaodi acidic foods. f/u with GI as outpatient for biopsy results. pt conveys understanding. Alfonzo Carroll MD March 07, 2017 12:48
--- NOTE | 2017-03-07 12:49 | HHI.DS ---
Discharge Summary Admission Date March 05, 2017 at 19:35 Discharge Date: March 07, 2017 Admitting Diagnosis lactic acidosis, nausea and vomiting, leukocytosis (1) Metabolic acidosis ICD Code: E87.2 (2) Nausea and vomiting ICD Code: R11.2 (3) Leukocytosis ICD Code: D72.829 (4) Gastroenteritis ICD Code: K52.9 Procedures EGD. please see report. Brief History - From Admission History patient, ER physician communication, and patient's girlfriend at the bedside. woke up at 7am because chest and abdominal pain - pain actually woke her up worse when you move when standing up, started vomiting then started having nausea vomitng - green color vomitied more than 12 times diarrhea 2- 3times - last diarrhea was red no hemorrids tyring to sleep off, hard to breathe sharp pains in chest whenever she breathes had had similar symptoms like this before - for past 1.5 yrs, had in jul and sep no relation to periods has had appendecotmy and tonsillectomy not on any meds no smoking, no drinking , no drugs no supplements CBC/BMP: 03/07/17 0618 03/07/17 0618 Significant Findings Laboratory Tests Test 03/05/17 03/05/17 03/05/17 03/06/17 17:25 17:31 21:00 05:51 White Blood Count 16.2 TH/MM3 15.1 TH/MM3 (4.0-11.0) (4.0-11.0) Neutrophils (%) (Auto) 93.0 % 70.4 % (16.0-70.0) (16.0-70.0) Lymphocytes (%) (Auto) 4.2 % (9.0-44.0) Neutrophils # (Auto) 15.1 TH/MM3 10.6 TH/MM3 (1.8-7.7) (1.8-7.7) Lymphocytes # (Auto) 0.7 TH/MM3 (1.0-4.8) Prothrombin Time 11.8 SEC (9.8-11.6) Potassium Level 3.4 MEQ/L (3.5-5.1) Carbon Dioxide Level 15.5 MEQ/L (21.0-32.0) Anion Gap 17 MEQ/L (5-15) Blood Urea Nitrogen 5 MG/DL (7-18) 4 MG/DL (7-18) 3 MG/DL (7-18) Estimat Glomerular Filtration 72 ML/MIN (>89) Rate Random Glucose 112 MG/DL 110 MG/DL (74-106) (74-106) Lactic Acid Level 7.2 mmol/L (0.4-2.0) Troponin I LESS THAN 0.02 NG/ML (0.02-0.05) Total Protein 8.3 GM/DL 6.2 GM/DL (6.4-8.2) (6.4-8.2) Lipase 50 U/L (73-393) Urine Glucose (UA) 150 mg/dL (NEG) Urine Ketones 150 mg/dL (NEG) Urine Occult Blood MOD (NEG) Urine RBC 6 /hpf (0-3) Urine Mucus FEW /lpf (OCC) Urine Cannabinoids Screen POS (NEG) Chloride Level 110 MEQ/L 113 MEQ/L (98-107) (98-107) Calcium Level 8.0 MG/DL 8.4 MG/DL (8.5-10.1) (8.5-10.1) Red Blood Count 3.81 MIL/MM3 (4.00-5.30) Hemoglobin 11.3 GM/DL (11.6-15.3) Hematocrit 34.7 % (35.0-46.0) Monocytes # (Auto) 1.1 TH/MM3 (0-0.9) Creatinine 0.49 MG/DL (0.50-1.00) Alkaline Phosphatase 41 U/L (45-117) Test 03/07/17 06:18 Red Blood Count 3.66 MIL/MM3 (4.00-5.30) Hemoglobin 11.2 GM/DL (11.6-15.3) Hematocrit 33.4 % (35.0-46.0) Chloride Level 113 MEQ/L (98-107) Blood Urea Nitrogen 4 MG/DL (7-18) Random Glucose 73 MG/DL (74-106) Calcium Level 8.2 MG/DL (8.5-10.1) Imaging Last Impressions Abdomen Ultrasound 03/06/17 0000 Signed Impressions: Service Date/Time: Monday, March 06, 2017 13:42 - CONCLUSION: Normal examination. Jayce Aponte MD Chest X-Ray 03/05/17 1713 Signed Impressions: Service Date/Time: February 17:17 - CONCLUSION: No acute cardiopulmonary process to explain current clinical symptoms. Av Cooney MD Hospital Course //Acute onset chest pain overnight 03/05 //Possible sudden anxiety attack from severe acid reflux/gastritissince patient associates these episodes occurred every time she eats something red. She states this this time it was after she had a red soda. Previous times it was mostly when she had tomato sauce and reconciliation machine operator or some spicy sauce. -D-dimer negative. Chest x-ray negative -EGD performed and positive for gastritis, hiatal hernia. No ulcer. -03/06. Anxiety, chest pain improved. Appreciate gastroenterology assistance. Ultrasound abdomen pending. Cultures negative to date. Continue to observe off of antibiotics. 03/07 resolved. EGD with hiatal hernia, biopsy pending, f/u gi. BID PPI. avoid acidic foods/drinks at bedtime (pt had red soda prior to bed) //intermittent MJ use. pt counseled to quit. association with nausea syndrome discussed. //Leukocytosis. resolved. No sign of infection otherwise. Continue to monitor off of antibiotics. //Lactic acidosis. On admission. -Lactic acid elevated in the sevens on admission.. Corrected with fluids. //Headache - stress/sleep related. no alarming symptoms. ibuprofen x1 //DVT prophylaxiswith SCD. //GI prophylaxis on pantoprazole. Discharge Planning DC home with PPI. avaodi acidic foods. followup with GI as outpatient for biopsy results. pt conveys understanding. Pt Condition on Discharge: Good Discharge Disposition: Discharge Home Discharge Time: <= 30 minutes Discharge Instructions DIET: Follow Instructions for: As Tolerated, No Restrictions Activities you can perform: Regular-No Restrictions Follow up Referrals: Gastroenterology - 1 Week with Mariana Mtz MD PCP Follow-up - 1 Week New Medications: Omeprazole (Omeprazole) 40 Mg Cap 40 MG PO BID Reflux #30 Ref 0 Alfonzo Hernandez MD March 07, 2017 12:49
== END 2017-03-07 15:22 | disposition home or self-care (01) | DRG 392 ==
LOC: NEPD 16:30 → NEDA 19:35 → N06B 21:30
PROVIDERS: ADMIT Internal Medicine; ATTEND Internal Medicine
PROC: 0DB68ZX Excision of Stomach, Via Natural or Artificial Opening Endoscopic, Diagnostic (ICD-10-PCS; principal; 2017-03-06 12:35)
DX: K52.9 Noninfective gastroenteritis and colitis, unspecified (principal); E87.2 Acidosis; D72.829 Elevated white blood cell count, unspecified; R11.2 Nausea with vomiting, unspecified; F41.9 Anxiety disorder, unspecified; R51 Headache; K29.70 Gastritis, unspecified, without bleeding; K21.0 Gastro-esophageal reflux disease with esophagitis; K44.9 Diaphragmatic hernia without obstruction or gangrene; F12.90 Cannabis use, unspecified, uncomplicated
CPT/HCPCS: 71010; 76700; 80048; 80053; 80307; 81001; 82010; 82550; 82552; 83605; 83690; 83735; 84484; 84702; 84703; 85025; 85379; 85610; 85730; 87040; 88305; 88312; 93005; 96361; 96365; 96375; J2060; J2270; J2405; J2543; J3370; J7030; J7050